=== PATIENT | female | born 1965 | race African-American/Black ===

== ENCOUNTER 2017-01-07 00:44 | Emergency (ER) | payer OTHER ==
[~2017-01-07] VITALS: Ht 157.5 cm; Wt 134.9 kg
[2017-01-07 00:56] VITALS: TEMP 36.6; Ht 157.5 cm; Wt 134.9 kg
[2017-01-07] MEDS ORDERED: OPTIRAY 320 IV PRN (01:45)
[2017-01-07] MEDS ORDERED: WARF6TAB PO (02:01)
[2017-01-07 02:42] VITALS: BP 148/110; PULSE 110; O2SAT 100
--- NOTE | 2017-01-07 02:52 | EMERGENCY ROOM VISIT NOTE ---
History First contact with patient: 01:05 Chief Complaint: FACIAL PAIN/INJURY Stated Complaint: NOSE SWOLLEN,SEVERE PAIN,GUMS HURT,FACE HURT History of Present Illness The patient is a 51 year old female who presents to the Emergency Department by private vehicle for evaluation of pain to her nose as well as associated swelling. She reports that her symptoms started 4 days ago. She was blowing her nose heavily the week before. She has had persistent pain to the nose which is increased over the past 2 days. She reports associated headaches. She denies any blurry vision, but reports pain to her eyes. She is had no bleeding from her nose. She has pain in her ears as well. She denies any fevers, chills, sore throat, cough, or a risk to her symptoms. The patient does take Coumadin daily secondary to diagnosis of pulmonary embolus. She reports that her last INR was 1.21 month ago. The patient's primary care provider is out of [facility]. She is tried nothing for pain [id number]. She denies any dizziness, lightheadedness, nausea, or vomiting. The patient rates her current discomfort as a 10/10. Review of Systems A complete 10-point Review of Systems was discussed with the patient, with pertinent positives and negatives listed in the History of Present Illness. All remaining Review of Systems questions can be considered negative unless otherwise specified. Social History Smoking Status: Never Smoker Smokeless Tobacco Use: No Drug Use: none Current/Historical Medications Scheduled Warfarin Sodium (Coumadin), 6 MG PO DAILY Allergies Coded Allergies: No Known Allergies (Unverified , 01/07/17) Physical Exam Vital Signs Date Time Temp Pulse Resp B/P Pulse Ox O2 Delivery O2 Flow Rate FiO2 01/07/17 02:42 110 18 148/110 100 Room Air 01/07/17 00:56 36.6 99 18 154/98 98 Room Air Pain Rating (0-10): 10 Physical Exam VITAL SIGNS - Vital signs and nursing notes were reviewed. GENERAL - Well nourished, well developed 51-year-old female in no acute distress. Pt communicates well with provider and answers questions appropriately. SKIN - Without rash. HEAD - NC/AT with no obvious deformities. EYES - PERRL with EOMI bilaterally. Sclera without injection. Palpebral conjunctiva pink and moist. EARS - No deformities of external structures noted on gross examination bilaterally. No pain elicited with palpation of the tragus bilaterally. External auditory canals without discharge or otorrhea. Tympanic membranes pearly loyola without retraction or bulging. No fluid or purulent material visualized behind the TM. Handle of malleus, umbo, cone of light, pars tensa/ flaccid all easily visualized. NOSE - Midline and without cyanosis. No purulent drainage noted. Nasal mucosa without mucus discharge. Subjective tenderness to palpation to the bridge of the nose and just bilateral side. No erythema or warmth to touch. MOUTH/OROPHARYNX - Without perioral cyanosis. Buccal mucosa pink and moist and without leukoplakia. Tongue midline with equal elevation of palate bilaterally. No tonsillar hypertrophy, erythema, or exudates noted. NECK - Neck with FROM. Supple to palpation. No lymphadenopathy noted. No nuchal rigidity. LUNGS - Chest wall symmetric without accessory muscle use, intercostals retractions, or central cyanosis. Normal vesicular breath sounds CTA B/L. No wheezes, rales, or rhonchi appreciated. CARDIAC - RRR with S1/S2. No murmur, rubs, or gallops appreciated. Medical Decision & Procedures ED Course Patient was seen and evaluated by myself. Initially, I ordered labs as well as a CT of facial bones with IV contrast. I was approached by nursing staff informed me that they were unable to obtain an IV site as the patient was refusing to allow them to attempt IV anywhere other than her ACs. I was asked to reevaluate the patient. I did explain to the patient that it would be difficult to help her if she was unable to allow us to access anywhere other than her before meals areas which were obviously difficult to access. She reports that she is not interested in any IVs at the site because they have been too painful in the past. I did suggest that we perform CT of the facial bones without IV contrast, however I did explain that this was not going to provide all the detailed information necessary for thorough evaluation. I discussed this in great detail. Despite this, she still elects to have CT performed without contrast. Orders for labs and IV were discontinued. I was approached by nursing staff performing that the patient wishes to leave without having the image studies performed. At this point, I did fill out AMA paperwork and provided to nursing staff to have them fill out the paperwork. The patient was frustrated with multiple IV attempts and apparently did not like our conversation. Regardless, patient is refusing care that I didn't appropriate given her stated complaints and concerns. She refuses to sign AMA paperwork. She left the emergency department AGAINST MEDICAL ADVICE. Medical Decision Given the patient's presentation and stated complaints coupled with her significant past medical history and anticoagulation therapy, I did elect to order the above-mentioned workup. IV access was unsuccessful as the patient would not allow staff to attempt any other sites. After confrontation with nursing staff, I was summoned for conversation with the patient. I did offer her CT of the facial bones without contrast her my concerns for the possibility of worsening disease process including worsening sinusitis or even venous sinus thrombosis or other catastrophe. Despite my explanation to the patient and my concerns, she was still adamant that she did not want IV. Apparently, she did not appreciate a conversation. I did explain the risks of leaving and not having imaging studies performed. The patient apparently accepts these risks and refuses to sign AMA paperwork despite her refusal to agree to any laboratory assessment or imaging studies. Patient chooses to leave the emergency department AGAINST MEDICAL ADVICE. In the evaluation and treatment of this patient, the following differential diagnoses were considered: Venous sinus thrombosis, sinusitis, meningitis, encephalitis, facial cellulitis, amongst others. Impression Primary Impression: Nasal pain Departure Information Dispostion Against Medical Advice Condition GOOD Referrals No Doctor, Assigned (PCP) Patient Instructions My [facility]
== END 2017-01-07 03:00 | disposition left against medical advice (07) ==
LOC: C.EDB 00:46
DX: J34.89 Other specified disorders of nose and nasal sinuses (principal); Z86.711 Personal history of pulmonary embolism; Z79.01 Long term (current) use of anticoagulants

== ENCOUNTER 2017-09-20 03:08 | Emergency (ER) | payer OTHER ==
[~2017-09-20] VITALS: Ht 157.5 cm; Wt 133.0 kg
[~2017-09-20 03:08] MED LIST: WARF6TAB PO
[2017-09-20 03:19] VITALS: TEMP 36.3; Ht 157.5 cm; Wt 133.0 kg
[2017-09-20] MEDS ORDERED: ONDANSETRON INJ 2 MG/ML 2 ML VIAL IV STA (03:35)
[2017-09-20] MEDS ORDERED: MoRPHine SULFATE 4 MG/ML 1 ML CARP\\VIAL IV STA (03:35)
[2017-09-20] MEDS ORDERED: DICYCLOMINE HCL 10 MG/ML 2 ML AMP IM ONE (03:45)
[2017-09-20] MEDS ORDERED: SODIUM CHLORIDE 0.9% 1000ML 1,000 ML IV STA (04:11)
[2017-09-20 04:27] LABS: BASO % 0.2 %; BASO ABS # 0.02 K/uL (0-0.2); EOS % 1.3 %; EOS ABS # 0.13 K/uL (0-0.5); HEMATOCRIT 30.7 % (37-47); IG# 0.02 K/uL (0.00-0.02); LYMPH % 36.2 %; LYMPH ABS # 3.61 K/uL (1.2-3.4); MEAN CELL VOLUME 71.1 fL (80-100); MEAN CORPUSCULAR HEMOGLOBIN 20.8 pg (25-34); MEAN CORPUSCULAR HGB CONC 29.3 g/dl (32-36); MEAN PLATELET VOLUME 10.5 fL (7.4-10.4); MONO % 5.1 %; MONO ABS # 0.51 K/uL (0.11-0.59); NEUT ABS # 5.67 K/uL (1.4-6.5); PLATELET COUNT 385 K/uL (130-400); RED CELL DISTRIBUTION WIDTH CV 19.4 % (11.5-14.5); RED CELL DISTRIBUTION WIDTH SD 50.8 fL (36.4-46.3); WHITE BLOOD COUNT 9.96 K/uL (4.8-10.8)
[2017-09-20] MEDS ORDERED: CEFTRIAXONE SOD INJ 1 GM ADDVIAL IV STA (04:41)
[2017-09-20 04:45] LABS: ALBUMIN 3.4 gm/dl (3.4-5.0); ALT/SGPT 18 U/L (12-78); AST/SGOT 15 U/L (15-37); BLOOD UREA NITROGEN 10 mg/dl (7-18); CALCIUM 8.8 mg/dl (8.5-10.1); CARBON DIOXIDE 27 mmol/L (21-32); CREATININE 0.87 mg/dl (0.60-1.20); GLUCOSE 121 mg/dl (70-99); POTASSIUM 3.8 mmol/L (3.5-5.1); SODIUM 137 mmol/L (136-145)
[2017-09-20 04:48] LABS: ALKALINE PHOSPHATASE 78 U/L (45-117); TOTAL PROTEIN 7.8 gm/dl (6.4-8.2)
[2017-09-20 04:49] LABS: INR 7.7 (0.9-1.1); PTT PATIENT 46.1 SECONDS (21.0-31.0)
[2017-09-20] MEDS ORDERED: AMLO10TA3 PO (06:20)
[2017-09-20] MEDS ORDERED: CETI1CAP3 PO (06:22)
[2017-09-20] MEDS ORDERED: FLUT0.15 NAE (06:23)
[2017-09-20] MEDS ORDERED: ATOR-24 PO (06:24)
[2017-09-20] MEDS ORDERED: DOCU100C31 PO (06:25)
[2017-09-20] MEDS ORDERED: FERR1TAB13 PO (06:26)
--- NOTE | 2017-09-20 06:26 | EMERGENCY ROOM VISIT NOTE ---
History First contact with patient: 03:27 Chief Complaint: PELVIC PAIN Stated Complaint: PELVIC PAIN, BUTT PAIN, LEG PAIN History of Present Illness The patient is a 52 year old female who presents to the Emergency Room with complaints of lower abdominal pain for the past half hour described as cramping , ranging in severity 8 out of 10. Patient states the pain radiates to her back and into her groin. Patient just finished her menstrual cycle. Patient states there is still are pretty regular but are getting heavier. She is on Coumadin for PEs. INR a few weeks ago was normal per patient. She is from [place] and is visiting family. Patient denies chest pain, dyspnea, fever , chills, vomiting, diarrhea, urinary symptoms, vaginal itching or discharge. Patient does states she's been having increased amount of gas tonight. She feels as if she needs to pass gas. Patient is not sexually active. She does not feel at risk for STIs. Review of Systems See HPI for pertinent positives & negatives. A total of 10 systems reviewed and were otherwise negative. Past Medical/Surgical History PE, iron deficiency anemia Social History Smoking Status: Never Smoker Smokeless Tobacco Use: No Drug Use: none Marital Status: single Current/Historical Medications Scheduled Amlodipine (Norvasc), 10 MG PO DAILY Atorvastatin (Lipitor), 40 MG PO DAILY Cephalexin Monohydrate (Keflex), 500 MG PO BID Cetirizine Hcl (All Day Allergy), 10 MG PO DAILY Cyclobenzaprine Hcl (Flexeril), 10 MG PO HS Docusate Sodium (Docusate Sodium), 100 MG PO BID Ferrous Sulfate (Kp Ferrous Sulfate), 325 MG PO BID Fluticasone Propionate (Nasal) (Flonase Allergy Relief), 2 SPRAYS ARETHA DAILY Gabapentin (Neurontin), 300 MG PO TID Warfarin Sodium (Coumadin), 6 MG PO DAILY Physical Exam Vital Signs Date Time Temp Pulse Resp B/P (MAP) Pulse Ox O2 Delivery O2 Flow Rate FiO2 09/20/17 06:13 91 19 100 09/20/17 06:01 148/93 09/20/17 05:58 87 100 09/20/17 05:45 151/ 09/20/17 04:43 96 18 100 09/20/17 04:38 102 15 100 09/20/17 04:36 145/86 09/20/17 04:23 98 13 100 09/20/17 04:08 96 21 100 Room Air 09/20/17 04:01 153/83 09/20/17 04:00 98 09/20/17 03:57 127/69 09/20/17 03:19 36.3 98 20 151/93 97 Room Air Physical Exam VITALS: Vitals are noted on the nurse's note and reviewed by myself. Vital signs mildly hypertensive GENERAL: Pleasant female answering questions appropriately, in no acute distress , nondiaphoretic, well-developed well-nourished. SKIN: The skin was without rashes, erythema, edema, or bruising. There is no tenting of the skin. Capillary reflex less than 2 seconds. HEAD: Normocephalic atraumatic. EARS: External auditory canals clear, tympanic membranes pearly loyola without erythema or effusion bilaterally. EYES: Pupils equal round and reactive to light and accommodation. Conjunctivae without injection, sclerae without icterus. Extraocular movements intact. NOSE: Patent, turbinates without inflammation or discharge. MOUTH: Mucous membranes moist. Pharynx without erythema or exudate. Uvula midline. Airway patent. Tongue does not deviate. NECK: Supple without nuchal rigidity. No lymphadenopathy. No thyromegaly. Cervical spine is nontender. No JVD. HEART: Regular rate and rhythm LUNGS: Clear to auscultation bilaterally without wheezes, rales or rhonchi. No dullness to percussion. No retractions or accessory muscle use. ABDOMEN: Positive bowel sounds x 4. Normal tympanic percussion. Soft, protuberant, obese, tender to palpation lower abdomen, without masses or organomegaly. Mills sign negative. No guarding or rebound tenderness. no CVA tenderness MUSCULOSKELETAL: No muscle atrophy, erythema, or edema noted. NEURO: Patient was alert and oriented to person place and time. Normal sensation to light and sharp touch. No focal neurological deficits. Medical Decision & Procedures Laboratory Results 09/20/17 04:10 Red Blood Count 4.32, Mean Corpuscular Volume 71.1, Mean Corpuscular Hemoglobin 20.8, Mean Corpuscular Hemoglobin Concent 29.3, Mean Platelet Volume 10.5, Neutrophils (%) (Auto) 57.0, Lymphocytes (%) (Auto) 36.2, Monocytes (%) (Auto) 5.1, Eosinophils (%) (Auto) 1.3, Basophils (%) (Auto) 0.2, Neutrophils # (Auto) 5.67, Lymphocytes # (Auto) 3.61, Monocytes # (Auto) 0.51, Eosinophils # (Auto) 0.13, Basophils # (Auto) 0.02 09/20/17 04:10 Test 09/20/17 03:45 09/20/17 04:10 Urine Color DK YELLOW Urine Appearance TURBID (CLEAR) Urine pH 5.5 (4.5-7.5) Urine Specific [place] 1.031 (1.000-1.030) Urine Protein 1+ (NEG) Urine Glucose (UA) NEG (NEG) Urine Ketones TRACE (NEG) Urine Occult Blood TRACE (NEG) Urine Nitrite NEG (NEG) Urine Bilirubin NEG (NEG) Urine Urobilinogen NEG (NEG) Urine Leukocyte Esterase MODERATE (NEG) Urine WBC (Auto) >30 /hpf (0-5) Urine RBC (Auto) 0-4 /hpf (0-4) Urine Hyaline Casts (Auto) 0 /lpf (0-5) Urine Epithelial Cells (Auto) >30 /lpf (0-5) Urine Bacteria (Auto) 3+ (NEG) Urine Pathogenic Casts /lpf (0) Urine Yeast (Auto) . (NONE PRSENT) White Blood Count 9.96 K/uL (4.8-10.8) Red Blood Count 4.32 M/uL (4.2-5.4) Hemoglobin 9.0 g/dL (12.0-16.0) Hematocrit 30.7 % (37-47) Mean Corpuscular Volume 71.1 fL (80-100) Mean Corpuscular Hemoglobin 20.8 pg (25-34) Mean Corpuscular Hemoglobin Concent 29.3 g/dl (32-36) Platelet Count 385 K/uL (130-400) Mean Platelet Volume 10.5 fL (7.4-10.4) Neutrophils (%) (Auto) 57.0 % Lymphocytes (%) (Auto) 36.2 % Monocytes (%) (Auto) 5.1 % Eosinophils (%) (Auto) 1.3 % Basophils (%) (Auto) 0.2 % Neutrophils # (Auto) 5.67 K/uL (1.4-6.5) Lymphocytes # (Auto) 3.61 K/uL (1.2-3.4) Monocytes # (Auto) 0.51 K/uL (0.11-0.59) Eosinophils # (Auto) 0.13 K/uL (0-0.5) Basophils # (Auto) 0.02 K/uL (0-0.2) RDW Standard Deviation 50.8 fL (36.4-46.3) RDW Coefficient of Variation 19.4 % (11.5-14.5) Immature Granulocyte % (Auto) 0.2 % Immature Granulocyte # (Auto) 0.02 K/uL (0.00-0.02) Anisocytosis PRESENT Prothrombin Time 77.5 SECONDS (9.0-12.0) Prothromb Time International Ratio 7.7 (0.9-1.1) Activated Partial Thromboplast Time 46.1 SECONDS (21.0-31.0) Partial Thromboplastin Ratio 1.8 Anion Gap 6.0 mmol/L (3-11) Est Creatinine Clear Calc Drug Dose 100.6 ml/min Estimated GFR () 89.4 Estimated GFR (Non- 77.1 BUN/Creatinine Ratio 11.7 (10-20) Calcium Level 8.8 mg/dl (8.5-10.1) Total Bilirubin 0.2 mg/dl (0.2-1) Direct Bilirubin < 0.1 mg/dl (0-0.2) Aspartate Amino Transf (AST/SGOT) 15 U/L (15-37) Alanine Aminotransferase (ALT/SGPT) 18 U/L (12-78) Alkaline Phosphatase 78 U/L (45-117) Total Protein 7.8 gm/dl (6.4-8.2) Albumin 3.4 gm/dl (3.4-5.0) Human Chorionic Gonadotropin, Qual NEG (NEG) Medications Administered Medications (Trade) Dose Ordered Sig/Becca Route Start Time Stop Time Status Last Admin Dose Admin Morphine Sulfate (MoRPHine SULFATE INJ) 4 mg NOW STAT IV 09/20/17 03:35 09/20/17 03:37 DC 09/20/17 04:30 4 MG Ondansetron HCl (Zofran Inj) 4 mg NOW STAT IV 09/20/17 03:35 09/20/17 03:37 DC 09/20/17 04:26 4 MG Dicyclomine HCl (Bentyl Inj) 20 mg NOW ONCE IM 09/20/17 03:45 09/20/17 03:46 DC 09/20/17 04:38 20 MG Sodium Chloride 1,000 ml @ 999 mls/hr Q1H1M STAT IV 09/20/17 04:11 09/20/17 05:11 DC 09/20/17 04:24 999 MLS/HR Ceftriaxone Sodium (Rocephin Inj) 1 gm NOW STAT IV 09/20/17 04:41 09/20/17 04:42 DC 09/20/17 05:41 1 GM ED Course Prior records/ancillary studies reviewed. Triage Nursing notes reviewed. Additional history obtained from family The patient's history was concerning for abdominal pain. Differential diagnosis: Etiologies such as appendicitis, ovarian cyst, torsion, pelvic infection, diverticulitis, PUD, biliary pathology, UTI, pancreatitis, obstruction, mesenteric ischemia, aortic pathology, infections, inflammatory bowel disease, renal colic, as well as others were entertained. Physical examination findings: As above. ER treatment provided: Bentyl, Zofran, morphine On reassessment the patient felt better. Diagnostics interpreted by me: The labs revealed anemia concerning for iron deficiency as she is hypochromic microcytic with an elevated RDW. Upon further questioning, the patient states she has not been taking her iron supplements as directed by the family care doctor. Urine concerning for infection and sent for culture Mild hyperglycemia without DKA Supratherapeutic INR Imaging studies: US PELVIC/ENDOVAG: Myomatous uterus. Nabothian cysts within the cervix. Endometrium is within normal limits measuring up to 17 mm. 13 mm follicle right ovary. 18 mm follicle left ovary. No torsion or masses. Trace free fluid in the pelvis. Radiologist: Phillip Mayer MD Exam and history seem consistent with UTI with anemia and supratherapeutic INR. Patient was strongly encouraged to restart her iron supplement with vitamin C. She is advised to hold her Coumadin tomorrow and have her INR rechecked next week with the family care doctor when she returns home to [place]. Patient does not have an acute abdomen on exam. She is well-appearing. She tolerating fluids. She is advised to take medications as directed, rest, stay well-hydrated and to follow-up family care in a few days or here in the ER sooner for abdominal pain, fevers, vomiting, worsening signs or symptoms or as needed. By the evaluation outlined above emergent etiologies such as appendicitis, diverticulitis, PUD, biliary pathology, pancreatitis, obstruction, mesenteric ischemia, aortic pathology, infections, inflammatory bowel disease, renal colic , as well as others were deemed relatively unlikely. The pt informed about the findings as listed above. All questions were answered and pleased with the treatment. Return instructions were outlined and the patient was discharged in stable condition. Outpatient prescription management: Keflex Referral: The patient was referred back to their primary care physician for follow-up in 2 to 3 days for a recheck of the current condition. Case reviewed with my attending Medical Decision As above Medication Reconcilliation Current Medication List: was personally reviewed by me Blood Pressure Screening Patient's blood pressure: Elevated blood pressure Blood pressure disposition: Elevated BP felt to be situational Impression Primary Impression: UTI (urinary tract infection) Additional Impressions: Supratherapeutic INR Anemia Hyperglycemia Departure Information Dispostion Home / Self-Care Condition GOOD Prescriptions Cephalexin Monohydrate (KEFLEX) 500 Mg Cap 500 MG PO BID for 5 Days, #10 CAP Prov: Ani Blevins ., EVANS 09/20/17 Referrals No Doctor, Assigned (PCP) Patient Instructions My [facility] Additional Instructions DO NOT drive, drink alcohol, operate machinery, or perform dangerous activities today. You were given medications in the ER that can affect your ability to safely function or operate a vehicle. Hold your Coumadin for the next 2 days. Recheck your INR next week with family care in 2 You need to restart your iron tablets with vitamin C. You're extremely anemic today. Your blood sugar was elevated today. Recheck this with family care. Keflex 500mg: Take one pill twice daily for 7 days for your urine infection. All antibiotics can cause diarrhea. If this occurs and you feel worse or it does not resolve in 1-2 days follow up with your doctor or return to the Emergency Department as this could be signs of serious underlying problems. Any medication can cause an allergic reaction, stop the pills immediately and return to the ER for rash, hives, breathing difficulties, or swelling. Zofran 4 mg: Take one every six hours as needed for nausea. Avoid alcohol, operating machinery or dangerous equipment, working on ladders or roofs, DRIVING , or situations where being under the influence may be dangerous. Acetaminophen(Tylenol) may be used for fever or pain. Use 1000mg every six hours as needed. Avoid using more than 3000mg in a 24 hour period. Rest and drink plenty of fluids as tolerated. Slow sips of water or sports drinks are recommended instead of large amounts all at once. Continue current medications. Once your stomach is settled start with a clear liquid diet (jello, soup broth, etc.) and then advance as tolerated. You should avoid full, heavy meals for about 24 hrs from the time your symptoms resolved. Return to the ER immediately for worsening or persistent abdominal/back pain, vomiting, fevers, worsening of your condition, or as needed. Follow up with your primary physician within 2-3 days for a recheck of the current condition. Problem Qualifiers Primary Impression: UTI (urinary tract infection) Urinary tract infection type: acute cystitis Hematuria presence: without hematuria Qualified Codes: N30.00 - Acute cystitis without hematuria
[2017-09-20] MEDS ORDERED: GABA-113 PO (06:27)
[2017-09-20] MEDS ORDERED: CYCL10TA6 PO (06:29)
[2017-09-20] MEDS ORDERED: CEPHALEXIN 500MG HOME PACK 1 EA BTL PO ONE (06:30)
[2017-09-20] MEDS ORDERED: ONDANSETRON HOME PACK 4MG OD TAB PO ONE (06:30)
[2017-09-20 06:31] VITALS: BP 136/108
[2017-09-20 06:33] VITALS: PULSE 84; O2SAT 100
[2017-09-20] MEDS ORDERED: CEPH500C2 PO (06:34)
--- NOTE | 2017-09-20 08:05 | DIAGNOSTIC IMAGING REPORT ---
EXAMINATION: PELVIC ULTRASOUND (transabdominal and endovaginal scanning) CLINICAL HISTORY: Pelvic pain COMPARISON STUDY: FINDINGS: The uterus measured 10.7 x 5.7 x 7.3 cm. There is a suspected 4.8 cm uterine fibroid. Multiple nabothian gland cysts are visualized.. The endometrial stripe measured 17 mm. The right ovary measured 31 x 23 x 22 mm. There is a 13 mm right ovarian follicle. The left ovary measured 35 x 21 x 20 mm.. There is an 18 mm left ovarian follicle. There is trace left adnexal fluid. There is no ultrasonographic evidence of ovarian torsion. It should be noted that ovarian torsion can be present with normal Doppler ultrasonographic findings. There is trace free fluid in the pelvis. The study was difficult from a technical standpoint due to the patient's large body habitus. IMPRESSION: 1. Technically limited study 2. Suspected 4.8 cm uterine fibroid 3. 17 mm endometrium. No pathologic adnexal masses. Electronically signed by: Dave Burton M.D. 09/20/2017 8:03 AM Dictated Date/Time: 09/20/2017 7:59 AM
--- NOTE | 2017-09-22 17:24 | Pharmacy Progress Note ---
ED Pharmacist Culture FollowUp Date of Service: Sep 22, 2017. Patient was seen in the ER 09/20 for lower abdominal pain with radiation to back and groin. She was dx with UTI and discharged on Keflex. Today urine cx finalized and is growing gardnerella-like bacilli. The organism is likely a contaminant as UA had > 30 epis. Gardnerella can be detected in normal asymptomatic patient's as well and BV cannot be diagnosed by use of a urine cx. She had denied vaginal itching and discharge and reported no urinary symptoms. Reviewed case with Dr Swain who requested a clinical f/u by phone and advise the patient to see her PCP if symptoms persist but return to ER if symptoms severe / troublesome. Per discussion with patient over the phone, she does still have lower abdominal pain however the intensity of the pain has decreased and she still denies having vaginal discharge or itching. I explained that the cultured organism may be a contaminant and nothing to worry about, however the organism could be responsible for her symptoms as well but would require additional testing using a vaginal swab to completely r/o BV. She stated she felt like she has improved but will f/u with her PCP upon return to [facility] if symptoms continue. I advised her she may return to the ER here if symptoms intensified.
== END 2017-09-20 06:49 | disposition home or self-care (01) ==
LOC: C.EDB 03:09
DX: N39.0 Urinary tract infection, site not specified (principal); R79.1 Abnormal coagulation profile; D64.9 Anemia, unspecified; R73.9 Hyperglycemia, unspecified; Z79.01 Long term (current) use of anticoagulants; Z86.711 Personal history of pulmonary embolism; Z79.899 Other long term (current) drug therapy; E66.9 Obesity, unspecified; Z68.43 Body mass index [BMI] 50.0-59.9, adult